=== PATIENT | female | born 1995 | race Caucasian/White ===

== ENCOUNTER → 2016-09-08 | Outpatient (CLI) | payer BC ==
[2016-09-11 23:54] LABS: CHLAMYDIA TRACH RNA*** NOT DETECTED (NOT DETECTED); GC (NEIS GONORRHOEAE)RNA** NOT DETECTED (NOT DETECTED)
== END | disposition home or self-care (01) ==
LOC: C.LABSPEC 17:34
PROVIDERS: ATTEND Obstetrics & Gynecology
DX: Z01.419 Encounter for gynecological examination (general) (routine) without abnormal findings (principal)

== ENCOUNTER → 2017-01-18 | Outpatient (CLI) | payer BC ==
[~2017-01-18] MED LIST: GADAVIST IV PRN
--- NOTE | 2017-01-18 15:54 | DIAGNOSTIC IMAGING REPORT ---
MRI OF THE BRAIN COMBO CLINICAL HISTORY: Migraine headaches. COMPARISON STUDY: No priors. TECHNIQUE: MRI of the brain was performed utilizing various T1 and T2-weighted sequences in the axial, sagittal, and coronal planes. Contrast-enhanced sequences were acquired following the administration of 5 cc of Gadavist. FINDINGS: Brain parenchyma: The brain parenchyma is normal in appearance. There is no hemorrhage or mass effect. There is no restricted diffusion to suggest acute ischemia. No enhancing mass lesion is identified on the postcontrast images. Frey-white matter differentiation is preserved. No extra-axial fluid collection is seen. The cerebellar tonsils are normal in configuration. Ventricles, sulci, and cisterns: Normal in configuration. Pituitary and sella: Unremarkable. Intracranial vasculature: Normal flow voids are maintained at the skull base. Orbits: The bony orbits are grossly intact. Orbital contents are normal in appearance. Sinuses and mastoids: Mucosal thickening is seen within the ethmoid and maxillary sinuses. The remaining paranasal sinuses and mastoid air cells are clear. Calvarium: Unremarkable. Cervical cord: Partially visualized cervical spinal cord is normal in morphology and signal intensity. IMPRESSION: No acute intracranial abnormality. Electronically signed by: George Gaviria M.D. 01/18/2017 3:53 PM Dictated Date/Time: 01/18/2017 3:50 PM
== END | disposition home or self-care (01) ==
LOC: C.MRI 14:40
PROVIDERS: ATTEND Physician Assistant
DX: R51 Headache (principal)

== ENCOUNTER 2024-06-23 07:34 | Inpatient (IN) ==
[2024-06-23] MEDS ORDERED: LIDOCAINE 1% LOCAL 20 ML VIAL INFIL PRN (07:57)
[2024-06-23] MEDS ORDERED: OXYTOCIN 30 UNITS/NSS 30 UNITS/500 ML BAG IV PRN (07:57)
[2024-06-23 08:43] LABS: Hematocrit (blood only) 37.7 % (37.0-47.0); Hemoglobin 13.1 g/dl (12.0-16.0); Mean Corpuscular Hgb Conc 34.7 g/dL (32.0-36.0); Mean Corpuscular Volume 89.3 fL (80.0-100.0); Mean Platelet Volume 11.4 fL (9.4-12.4); Platelet Count 177 K/uL (130-400); RDW Standard Deviation 42.1 fL (36.4-46.3); Red Blood Count 4.22 M/uL (4.20-5.40); White Blood Count 8.41 K/ul (4.8-10.8)
[2024-06-23] MEDS: SODIUM CHLORIDE 0.9% 1,000 ML IV SCH (09:50)
[2024-06-23] MEDS: OXYTOCIN 30 UNITS/NSS 30 UNITS/500 ML BAG IV PRN (09:50)
[2024-06-23] MEDS ORDERED: fentaNYL citrate PF 100 MCG/2 ML VIAL EPI STA (13:32)
[2024-06-23] MEDS ORDERED: NALBUPHINE HCL INJ 10 MG/ML AMP IV PRN (13:32)
[2024-06-23] MEDS ORDERED: BUPIVACAINE 0.25% PF 30 ML VIAL EPI PRN (13:32)
[2024-06-23] MEDS ORDERED: fentaNYL citrate PF 100 MCG/2 ML VIAL EPI PRN (13:32)
[2024-06-23] MEDS ORDERED: ONDANSETRON INJ 2 MG/ML 2 ML VIAL IV PRN (13:32)
[2024-06-23] MEDS ORDERED: diphenhydrAMINE 50 MG/ML VIAL IV PRN (13:32)
[2024-06-23] MEDS ORDERED: LIDOCAINE 2% MPF LOCAL 5 ML VIAL EPI PRN (13:32)
[2024-06-23] MEDS ORDERED: SODIUM CHLORIDE 0.9% PF INJ 10 ML VIAL EPI PRN (13:32)
[2024-06-23] MEDS ORDERED: LIDOCAINE 2%/EPINEPHRINE 1:200,000 20 ML PF EPI STA (13:32)
[2024-06-23] MEDS ORDERED: NALOXONE HCL 0.4 MG/1 ML VIAL/CARP IV PRN (13:32)
[2024-06-23] MEDS ORDERED: ROPIVACAINE 0.5% PF 5 MG/ML 20 ML VIAL EPI PRN (13:32)
[2024-06-23] MEDS ORDERED: NALOXONE HCL 1 MG in SODIUM CHLORIDE 0.9% 1,000 ML IV PRN (13:32)
[2024-06-23] MEDS ORDERED: BUPIVACAINE 0.25% PF 30 ML VIAL EPI STA (13:32)
[2024-06-23] MEDS ORDERED: ePHEDrine sulfate 50 MG/ML AMP IV PRN (13:32)
[2024-06-23] MEDS ORDERED: SODIUM CHLORIDE 0.9% PF INJ 10 ML VIAL EPI STA (13:32)
--- NOTE | 2024-06-23 13:33 | Anesthesiology Consultation ---
Date of Service June 23, 2024 Assessment & Plan (1) Encounter for pre-operative examination: Chart Review Chart Review: Patient NOT seen in Pre Admission Testing and Acceptable Risk for Labor Epidural Consults Requested none History Height/Weight Height: 5 ft 4 in Weight: 66.678 kg Allergies Allergy/AdvReac Type Severity Reaction Status Date / Time No Known Drug Allergies Allergy Verified 06/19/24 10:56 Medications Home Medications Medication Instructions Recorded Confirmed Last Taken sertraline 25 mg tablet 50 mg PO .TAKE 1 TABLET DAILY 02/16/20 06/23/24 06/22/24 21:00 NEEDED. PRN Anxiety 21-iron fu-folic acid 1 tab PO DAILY 11/26/23 06/23/24 06/22/24 21:00 [ Complete] breast pump #1 ea 02/21/24 06/19/24 Unknown Active Medications Generic Name Dose Route Start Last Admin Trade Name Freq PRN Reason Stop Dose Admin Oxytocin 30 units in 500 mls @ 12 mls/hr 06/23/24 07:57 06/23/24 12:20 Pitocin 30 Units/Nss IV 06/25/24 07:56 0.72 units/hr .Q24H PRN 12 mls/hr Labor Induction/Augmentation Titration Protocol 0.72 UNITS/HR Sodium Chloride 1,000 mls @ 50 mls/hr 06/23/24 10:00 06/23/24 09:50 Nss IV 06/24/24 09:59 50 mls/hr .Q20H TEGAN Administration Past Medical History Medical History (Updated 06/23/24 @ 13:33 by Derrick Sierra MD) Encounter for pre-operative examination Seasonal allergies UTI (urinary tract infection) History of chicken pox History of migraine Anxiety Finger laceration Exercise / Class Metabolic Activity II 4-5 Yardwork/Stairs/Walk up hill Past Family History Family History Mother Thyroid cancer Father Asthma Denies family history of Ovarian cancer Breast cancer Colorectal cancer Past Surgical History Surgical History S/P wisdom tooth extraction History of surgical removal of ganglion cyst H/O colonoscopy History of esophagogastroduodenoscopy (EGD) Social History Smoking Status: Never smoker Do You Dip or Chew Tobacco: No Hx Alcohol Use: No Hx Substance Use: No substance use type: does not use Physical Exam Vital Signs Last Vital Signs Temp 36.7 C 06/23/24 08:06 Pulse 71 06/23/24 14:09 Resp 16 06/23/24 08:06 BP 152/96 H 06/23/24 14:06 Pulse Ox 99 06/23/24 14:09 Testing Laboratory Results 06/23/24 08:21
[2024-06-23] MEDS: fentANYL 2 MCG/ML BUPIVacaine 0.125%-NSS 100ML BAG ONE (14:10)
[2024-06-23] MEDS: fentaNYL citrate PF 100 MCG/2 ML VIAL ONE (14:19)
[2024-06-23] MEDS: LIDOCAINE 2%/EPINEPHRINE 1:200,000 20 ML PF ONE (14:19)
[2024-06-23] MEDS: BUPIVACAINE 0.25% PF 30 ML VIAL ONE (14:20)
[2024-06-23] MEDS: fentANYL 2 MCG/ML BUPIVacaine 0.125%-NSS 100ML BAG EPI PRN (23:32)
[2024-06-24] MEDS ORDERED: ROPIVACAINE 0.5% 5 MG/ML 30 ML VIAL ONE (01:02)
[2024-06-24] MEDS ORDERED: LIDOCAINE 2%/EPINEPHRINE 1:200,000 20 ML PF ONE (01:02)
--- NOTE | 2024-06-24 01:24 | Anesthesia Procedure Note ---
Date of Service June 24, 2024 Anesthesia Epidural Re-Dose Vital Signs Temp Pulse Resp BP Pulse Ox 37.1 C 99 H 18 121/76 98 06/23/24 23:31 06/24/24 01:19 06/24/24 00:01 06/24/24 01:17 06/24/24 01:19 Notes Pain Intensity: 0 Dilatation (cm): 7.0 Effacement (%): 100 Called by nursing to evaluate epidural as the patient is having increased pain. The epidural was re-dosed with the following medications (all medications via epidural route) after negative aspiration of the epidural catheter for CSF/HEME. 4ml of 2% LIdocaine and 4ml of 0.5% ropivicaine After Epidural Re-Dose Mental Status: alert / awake / arousable Pain: improving with treatment Airway Patency, RR, SpO2: stable & adequate BP & HR: stable & adequate
[2024-06-24] MEDS ORDERED: SERTRALINE HCL 50 MG TABLET PO PRN (02:57)
[2024-06-24] MEDS ORDERED: oxyCODONE/ACETAMINOPHEN 5mg/325mg TAB PO PRN (02:57)
[2024-06-24] MEDS ORDERED: HYDROCORTISONE ACETATE 25 MG SUPP PR PRN (02:57)
[2024-06-24] MEDS ORDERED: OXYTOCIN 30 UNITS/NSS 30 UNITS/500 ML BAG IV PRN (02:57)
--- NOTE | 2024-06-24 03:08 | Delivery Summary ---
Vaginal Delivery Summary Date of Service June 24, 2024 Vaginal Delivery Summary DIAGNOSES 1. Corbett intrauterine at 37 weeks 4 days gestation. 2. Induction of Labor, due to Severe IUGR. 3. Group B Streptococcus Neg. PROCEDURE: Spontaneous vaginal delivery without laceration. SURGEON: Aga Mueller MD. COMMUNITY DEVELOPMENT TECHNICIAN: None. ESTIMATED BLOOD LOSS: 100 mL. COMPLICATIONS: None. PLACENTA: Spontaneous and intact with a 3-vessel cord. DISPOSITION: Stable to labor and delivery. DESCRIPTION: The patient pushed well and brought the head to in DOA position. The 's head was allowed to deliver with contraction force and no further active pushing, with the perineum protected during this time. There was no nuchal cord. The left shoulder was anterior. The shoulders and body delivered without any difficulty, and the infant was placed on the maternal abdomen. It was vigorous and moving all extremities, and making respiratory efforts. Vocal cries were heard within seconds of . The cord was doubly clamped by the MD and then cut by the FOB. The placenta delivered spontaneously and was noted to be intact and with a 3VC, though small. The cervix, vagina and perineum were examined and were found to be without defect requiring repair. The fundus was firm and lochia minimal immediately after delivery. [facility] Vaginal Delivery Charge Vaginal Delivery Codes: 95861 global code for the antepartum, delivery, and post-
[2024-06-24] MEDS: ePHEDrine sulfate 50 MG/ML AMP ONE (03:11)
[2024-06-24] MEDS: SODIUM CHLORIDE 0.9% PF INJ 10 ML VIAL ONE (03:11)
--- NOTE | 2024-06-24 07:24 | Obstetrical Progress Note ---
Date of Service June 24, 2024 Assessment & Plan (1) Hypertension: PPD#0 from of IUGR infant. , BP elevations noted, briefly in severe range but have settled at lower end of HTN. No symptoms. Will check labs but also start procardia now. Subjective Ambulation: ambulating normally Voiding: no voiding problems Passing Gas:: Yes Diet Tolerance:: regular diet Lochia:: Small Feeding Type:: bottle feeding Current Pain Level(1-10): 0 Denies ANDRES, RUQ or Vis Chg. No edema. Physical Exam Constitutional WD/WN, vitals as above Eyes PERRL, conjunctivae normal, anicteric sclerae ENMT external ear and nose normal, oropharynx normal Neck trachea midline, no thyromegaly Respiratory normal respiratory effort and able to speak in complete sentences; no respiratory distress, no labored breathing and does not use accessory muscles Cardiovascular Rate/Rhythm: regular rate and regular rhythm Extremities: no calf tenderness and no pedal edema Chest (Breasts) Breast: normal inspection of breasts (Only R breast visible during visit today. Formula bottle in bed.) Gastrointestinal (Abdomen) Inspection/Auscultation: abdomen normal to inspection; abdomen not distended Fundus not palpated d/t mom holding at this time. Musculoskeletal no cyanosis or clubbing, extremities motor strength 5/5 Skin no rashes, warm and dry Neurologic patellar DTR's 2+ bilat, sensation intact Psychiatric A+Ox3, euthymic affect Genitourinary Speculum/Bimanual Exam: uterus nontender Results & Data Vital Signs (Past 12 Hours) Vital Signs Temp Pulse Resp BP Pulse Ox 06/24/24 07:04 84 140/85 06/24/24 07:01 75 139/90 06/24/24 06:46 77 146/88 H 06/24/24 06:31 78 144/87 H 06/24/24 06:16 81 141/84 H 06/24/24 06:01 75 139/82 06/24/24 05:46 77 144/88 H 06/24/24 05:31 76 142/85 H 06/24/24 05:16 92 H 135/83 06/24/24 05:01 75 148/95 H 06/24/24 05:00 18 06/24/24 04:46 77 138/94 06/24/24 04:30 18 06/24/24 04:30 149/97 H 06/24/24 04:25 74 168/95 H 06/24/24 04:16 75 169/104 H 06/24/24 04:00 18 06/24/24 04:00 77 144/94 H 06/24/24 03:58 79 148/101 H 06/24/24 03:46 82 143/96 H 06/24/24 03:45 18 06/24/24 03:31 78 153/98 H 06/24/24 03:30 18 06/24/24 03:16 87 149/91 H 06/24/24 03:15 18 06/24/24 03:01 96 H 147/102 H 06/24/24 03:00 98.4 F 18 06/24/24 02:48 97 H 138/82 06/24/24 02:44 89 100 06/24/24 02:39 134 H 100 06/24/24 02:34 103 H 97 06/24/24 02:31 96 H 165/107 H 06/24/24 02:29 99 H 99 06/24/24 02:24 97 H 100 06/24/24 02:19 103 H 133/95 100 06/24/24 02:18 101 H 139/110 H 06/24/24 02:17 93 H 147/101 H 06/24/24 02:14 87 96 06/24/24 02:09 86 95 06/24/24 02:04 90 96 06/24/24 02:02 80 137/83 06/24/24 01:59 87 96 06/24/24 01:54 85 95 06/24/24 01:49 84 97 06/24/24 01:47 83 138/91 06/24/24 01:44 87 98 06/24/24 01:39 83 98 06/24/24 01:34 81 100 06/24/24 01:32 90 135/89 06/24/24 01:31 18 06/24/24 01:31 18 06/24/24 01:29 106 H 99 06/24/24 01:25 18 06/24/24 01:25 98.1 F 18 06/24/24 01:24 104 H 100 06/24/24 01:21 85 126/77 06/24/24 01:19 99 H 98 06/24/24 01:17 85 121/76 06/24/24 01:14 85 100 06/24/24 01:11 82 143/83 H 06/24/24 01:10 83 205/138 H 06/24/24 01:09 81 99 06/24/24 01:05 80 192/118 H 06/24/24 01:04 86 97 06/24/24 00:59 79 98 06/24/24 00:54 85 98 06/24/24 00:49 87 100 06/24/24 00:44 85 98 06/24/24 00:39 79 99 06/24/24 00:34 86 97 06/24/24 00:30 86 88 L 06/24/24 00:29 81 99 06/24/24 00:24 76 97 06/24/24 00:19 100 H 97 06/24/24 00:14 79 97 06/24/24 00:09 75 97 06/24/24 00:04 80 98 06/24/24 00:01 80 18 133/89 06/23/24 23:59 81 97 06/23/24 23:54 79 96 06/23/24 23:49 78 96 06/23/24 23:46 71 131/79 06/23/24 23:44 76 96 06/23/24 23:39 78 95 06/23/24 23:34 74 95 06/23/24 23:32 77 136/84 06/23/24 23:31 18 06/23/24 23:31 98.8 F 18 06/23/24 23:29 78 96 06/23/24 23:24 79 96 06/23/24 23:19 79 96 06/23/24 23:16 73 137/75 06/23/24 23:14 80 96 06/23/24 23:09 81 96 06/23/24 23:04 78 96 06/23/24 23:01 81 18 134/74 06/23/24 22:59 76 97 06/23/24 22:54 72 96 06/23/24 22:49 76 97 06/23/24 22:46 76 138/76 06/23/24 22:44 80 96 06/23/24 22:39 79 97 06/23/24 22:34 82 96 06/23/24 22:31 75 18 127/78 06/23/24 22:29 81 96 06/23/24 22:24 76 96 06/23/24 22:19 79 98 06/23/24 22:17 71 133/78 06/23/24 22:14 89 97 06/23/24 22:09 78 97 06/23/24 22:04 81 96 06/23/24 22:01 73 18 136/84 06/23/24 21:59 82 96 06/23/24 21:54 77 96 06/23/24 21:49 82 97 06/23/24 21:48 71 133/82 06/23/24 21:46 75 128/83 06/23/24 21:44 84 97 06/23/24 21:39 77 96 06/23/24 21:34 74 97 06/23/24 21:31 75 18 130/81 06/23/24 21:29 86 96 06/23/24 21:24 81 97 06/23/24 21:19 77 99 06/23/24 21:17 77 125/79 06/23/24 21:16 75 135/89 06/23/24 21:14 78 99 06/23/24 21:09 78 100 06/23/24 21:04 79 100 06/23/24 21:01 78 18 124/82 06/23/24 20:54 85 100 06/23/24 20:49 86 98 06/23/24 20:46 84 131/87 06/23/24 20:44 84 99 06/23/24 20:39 92 H 100 06/23/24 20:34 72 99 06/23/24 20:32 77 127/82 06/23/24 20:29 80 99 06/23/24 20:24 79 97 06/23/24 20:23 18 06/23/24 20:23 18 06/23/24 20:19 78 97 06/23/24 20:16 83 128/86 06/23/24 20:14 74 96 06/23/24 20:09 78 99 06/23/24 20:04 77 97 06/23/24 20:01 76 127/85 06/23/24 19:59 72 97 06/23/24 19:54 71 98 06/23/24 19:49 82 97 06/23/24 19:47 80 125/84 06/23/24 19:44 71 99 06/23/24 19:39 76 99 06/23/24 19:34 65 99 06/23/24 19:32 80 128/85 06/23/24 19:29 73 99 06/23/24 19:24 85 100
[2024-06-24] MEDS: PRENATAL VITAMIN 1 TAB PO SCH (07:44)
[2024-06-24] MEDS: NIFEdipine EXTENDED REL 30 MG TABCR PO SCH (07:44)
[2024-06-24] MEDS: DOCUSATE SODIUM 100 MG CAP PO SCH (07:44)
[2024-06-24] MEDS: BENZOCAINE 20% SPRY 85 APPLN/85 GM CAN EXT PRN (07:46)
[2024-06-24 07:49] LABS: Hematocrit (blood only) 39.7 % (37.0-47.0); Hemoglobin 13.8 g/dl (12.0-16.0); Mean Corpuscular Hemoglobin 31.3 pg (25.0-34.0); Mean Corpuscular Hgb Conc 34.8 g/dL (32.0-36.0); Mean Platelet Volume 11.3 fL (9.4-12.4); Platelet Count 197 K/uL (130-400); RDW Coefficient of Variation 13.2 % (11.5-14.5); RDW Standard Deviation 43.5 fL (36.4-46.3); Red Blood Count 4.41 M/uL (4.20-5.40); White Blood Count 17.88 K/ul (4.8-10.8)
[2024-06-24] MEDS: IBUPROFEN 600 MG TAB PO PRN (08:01)
[2024-06-24 08:10] LABS: Albumin Globulin Ratio 1.3 (0.9-2); Albumin Level 3.5 gm/dl (3.4-5.0); BUN Creatinine Ratio 12.5 (10-20); Bilirubin,Total 0.5 mg/dl (0.2-1.0); Calcium 9.5 mg/dl (8.6-10.3); Creatinine Clr Calc Pharmacy 99.2 ml/min; Globulin 2.8 gm/dl (2.5-4.0); Potassium 4.2 mmol/L (3.5-5.1); Total Protein 6.3 gm/dl (6.0-8.3)
--- NOTE | 2024-06-24 08:16 | Anesthesia Procedure Note ---
Date of Service June 24, 2024 Anesthesia Post Epidural Note Vital Signs Vital Signs: Temp Pulse Resp BP Pulse Ox 36.9 C 67 18 161/93 H 100 06/24/24 03:00 06/24/24 08:01 06/24/24 05:00 06/24/24 08:01 06/24/24 02:44 Notes Mental Status: alert / awake / arousable Nausea / Vomiting: adequately controlled Pain: adequately controlled Airway Patency, RR, SpO2: stable & adequate BP & HR: stable & adequate Hydration State: stable & adequate Neuraxial Anesthesia: was administered and sensory block is resolving Anesthetic Complications: no major complications apparent and Pt Satisfied with anesthetic care Epidural: Removed without complications and With tip intact
--- NOTE | 2024-06-24 08:17 | Communication Note ---
Date of Service: June 24, 2024 Patient continues to be asymptomatic. She just received first dose of procardia. Pressures as noted. Exam benign. Labs all wnl. Will continue to monitor closely.
--- NOTE | 2024-06-24 08:40 | Communication Note ---
Date of Service: June 24, 2024 Labs are normal but last two blood pressures after procardia given have been in the severe range. Most recently 170/103. Given patient was completely normotensive prior to and through delivery, and now hypertensive, must assume pp pet. Discussed this with the patient and the concerns for pp pet and eclampsia. discussed recommend mag sulfate for treatment at this time. Discussed the r/b/se of mag. Discussed the r/b/se of eclampsia. Patient is agreeable to treatment. baby weighed 4#14oz. May be she has iugr because she had pet.
[2024-06-24] MEDS: SODIUM CHLORIDE 0.9% 1,000 ML IV SCH (09:00)
[2024-06-24] MEDS: MAGNESIUM SULFATE / WTR 40 GM/1,000 ML BAG IV SCH (09:03)
[2024-06-24] MEDS: MAG SULFATE 6GM BOLUS FROM BAG IV ONE (09:03)
[2024-06-24] MEDS: LABETALOL HCL 200 MG TAB PO ONE (10:34)
[2024-06-24] MEDS: DIPHTHER/TETAN/PERTUS Vaccine (Tdap, Adol/Adult) 0.5mL IM ONE (14:47)
[2024-06-24] MEDS: SERTRALINE HCL 50 MG TABLET PO SCH (20:35)
[2024-06-25] MEDS: ACETAMINOPHEN 325 MG TAB PO PRN (02:16)
--- NOTE | 2024-06-25 05:42 | Obstetrical Progress Note ---
Date of Service June 25, 2024 Assessment & Plan (1) Preeclampsia: Plan Doing well on Mag. Pressures have been improved, excellent uop. Plan to d/c mag at 9 and transfer to the floor. then treat bps as needed. nl pp care. Day #:: 1 Subjective Ambulation: limited ambulation Voiding: olmedo catheter in place Passing Gas:: No Diet Tolerance:: clear liquids Lochia:: Small Feeding Type:: breast feeding (pumping and feeding. ) patient notes a mild feng that resolved with tylenol. notes she is hungry. No vision changes, n/v, ruq pain, cp, sob. Physical Exam Constitutional WD/WN, vitals as above Cardiovascular Extremities: no calf tenderness and no edema Gastrointestinal (Abdomen) soft, nt, nd ff/nt 1 below u Neurologic patellar DTR's 2+ bilat, sensation intact Psychiatric A+Ox3, euthymic affect Results & Data Vital Signs (Past 12 Hours) Vital Signs Temp Pulse Resp BP Pulse Ox 06/25/24 05:32 69 98 06/25/24 05:31 16 06/25/24 05:27 72 97 06/25/24 05:22 71 97 06/25/24 05:17 82 06/25/24 05:17 75 144/81 H 96 06/25/24 05:12 76 95 06/25/24 05:07 76 95 06/25/24 05:02 76 95 06/25/24 04:57 76 95 06/25/24 04:52 76 96 06/25/24 04:47 76 95 06/25/24 04:42 76 95 06/25/24 04:37 75 96 06/25/24 04:32 74 96 06/25/24 04:27 72 96 06/25/24 04:22 71 98 06/25/24 04:17 71 06/25/24 04:17 71 119/84 97 06/25/24 04:13 36.4 C L 06/25/24 04:13 16 06/25/24 04:12 92 H 94 06/25/24 04:07 74 95 06/25/24 04:02 74 95 06/25/24 03:57 74 94 06/25/24 03:52 72 96 06/25/24 03:47 80 94 06/25/24 03:42 16 06/25/24 03:42 80 95 06/25/24 03:37 74 95 06/25/24 03:32 80 94 06/25/24 03:27 81 95 06/25/24 03:22 79 95 06/25/24 03:17 76 06/25/24 03:17 79 113/69 95 06/25/24 03:12 79 95 06/25/24 03:07 80 95 06/25/24 03:02 79 95 06/25/24 02:57 78 96 06/25/24 02:52 76 95 06/25/24 02:47 75 96 06/25/24 02:42 73 97 06/25/24 02:37 76 98 06/25/24 02:32 74 100 06/25/24 02:27 73 100 06/25/24 02:22 83 99 06/25/24 02:21 18 06/25/24 02:21 78 83 L 06/25/24 02:17 89 130/83 96 06/25/24 02:13 97 H 85 L 06/25/24 02:12 85 98 06/25/24 02:07 85 99 06/25/24 02:02 86 97 06/25/24 01:57 87 100 06/25/24 01:52 83 98 06/25/24 01:51 84 88 L 06/25/24 01:47 82 126/73 99 06/25/24 01:42 79 94 06/25/24 01:37 78 93 06/25/24 01:32 79 94 06/25/24 01:27 79 94 06/25/24 01:22 81 93 06/25/24 01:17 77 06/25/24 01:17 80 109/68 94 06/25/24 01:12 79 94 06/25/24 01:07 78 94 06/25/24 01:02 76 95 06/25/24 00:57 79 99 06/25/24 00:52 92 H 100 06/25/24 00:47 77 06/25/24 00:47 86 118/78 98 06/25/24 00:42 88 97 06/25/24 00:37 79 97 06/25/24 00:32 79 92 06/25/24 00:30 36.4 C L 06/25/24 00:30 16 06/25/24 00:27 77 92 06/25/24 00:22 81 92 06/25/24 00:17 95 H 06/25/24 00:17 87 128/65 94 06/25/24 00:16 86 92 06/25/24 00:12 86 93 06/25/24 00:11 83 91 06/25/24 00:07 84 94 06/25/24 00:02 84 93 06/24/24 23:57 86 94 06/24/24 23:52 85 94 06/24/24 23:47 85 06/24/24 23:47 86 106/60 92 06/24/24 23:42 91 H 95 06/24/24 23:37 89 93 06/24/24 23:32 87 93 06/24/24 23:30 16 06/24/24 23:28 87 92 06/24/24 23:27 86 92 06/24/24 23:22 89 93 06/24/24 23:17 87 06/24/24 23:17 89 103/61 93 06/24/24 23:12 88 93 06/24/24 23:07 89 94 06/24/24 23:02 88 94 06/24/24 22:57 87 93 06/24/24 22:52 89 94 06/24/24 22:47 87 110/69 95 06/24/24 22:42 89 97 06/24/24 22:37 88 97 06/24/24 22:32 84 97 06/24/24 22:30 18 06/24/24 22:27 83 96 06/24/24 22:22 85 97 06/24/24 22:17 80 117/71 98 06/24/24 22:12 92 H 96 06/24/24 22:07 93 H 99 06/24/24 22:02 85 99 06/24/24 21:57 146 H 83 L 06/24/24 21:52 106 H 92 06/24/24 21:51 104 H 91 06/24/24 21:47 83 123/78 98 06/24/24 21:46 101 H 91 06/24/24 21:42 92 H 96 06/24/24 21:37 102 H 96 06/24/24 21:35 16 06/24/24 21:32 95 H 96 06/24/24 21:27 101 H 95 06/24/24 21:22 99 H 97 06/24/24 21:17 87 129/86 97 06/24/24 21:12 98 H 98 06/24/24 21:07 87 98 06/24/24 21:02 85 98 06/24/24 20:57 92 H 99 06/24/24 20:52 89 99 06/24/24 20:47 84 06/24/24 20:47 88 137/92 100 06/24/24 20:42 90 100 06/24/24 20:37 88 100 06/24/24 20:32 90 98 06/24/24 20:27 88 100 06/24/24 20:22 89 100 06/24/24 20:17 87 06/24/24 20:17 90 126/89 100 06/24/24 20:13 16 06/24/24 20:12 84 100 06/24/24 20:07 92 H 99 06/24/24 20:02 99 H 99 06/24/24 19:57 92 H 100 06/24/24 19:52 90 100 06/24/24 19:47 86 06/24/24 19:47 89 131/81 100 06/24/24 19:42 87 100 06/24/24 19:37 85 100 06/24/24 19:32 84 100 06/24/24 19:27 83 100 06/24/24 19:22 85 100 06/24/24 19:17 78 06/24/24 19:17 78 133/92 100 06/24/24 19:12 89 100 06/24/24 19:07 79 99 06/24/24 19:04 16 06/24/24 19:01 85 95 06/24/24 19:00 84 89 L 06/24/24 18:56 86 95 06/24/24 18:51 86 84 L 06/24/24 18:48 92 H 135/86 91 06/24/24 18:46 86 93 06/24/24 18:43 86 90 06/24/24 18:41 88 97 06/24/24 18:36 86 97 06/24/24 18:35 83 92 06/24/24 18:33 88 143/104 H 06/24/24 18:31 86 95 06/24/24 18:26 88 96 06/24/24 18:21 92 H 91 06/24/24 18:17 88 135/98 06/24/24 18:16 85 91 06/24/24 18:11 90 67 L 06/24/24 18:10 93 H 87 L 06/24/24 18:06 89 99 06/24/24 18:03 81 137/100 06/24/24 18:01 89 L 06/24/24 18:01 89 06/24/24 18:01 86 100 06/24/24 18:00 18 06/24/24 17:56 89 98 06/24/24 17:51 93 H 97 06/24/24 17:47 86 131/76 06/24/24 17:46 83 96 06/24/24 17:41 88 97
[2024-06-25 06:28] LABS: Hematocrit (blood only) 41.1 % (37.0-47.0); Hemoglobin 14.3 g/dl (12.0-16.0); Mean Corpuscular Hemoglobin 31.9 pg (25.0-34.0); Mean Corpuscular Hgb Conc 34.8 g/dL (32.0-36.0); Mean Corpuscular Volume 91.7 fL (80.0-100.0); Mean Platelet Volume 10.7 fL (9.4-12.4); Platelet Count 164 K/uL (130-400); RDW Coefficient of Variation 13.4 % (11.5-14.5); RDW Standard Deviation 44.4 fL (36.4-46.3); Red Blood Count 4.48 M/uL (4.20-5.40); White Blood Count 9.22 K/ul (4.8-10.8)
[2024-06-25] MEDS: bisacodyL 5 MG TABEC PO SCH (20:28)
[2024-06-26] MEDS ORDERED: bisacodyL 10 MG SUPP PR PRN (02:57)
[2024-06-26 07:12] LABS: Hematocrit (blood only) 40.3 % (37.0-47.0); Hemoglobin 13.9 g/dl (12.0-16.0)
--- NOTE | 2024-06-26 07:50 | Obstetrical Progress Note ---
Date of Service June 26, 2024 Assessment & Plan (1) Encounter for assessment: Plan: Patient is PPD 2 s/p and doing well - Eating well, voiding well, ambulating well - vitals reviewed, BP continues to be borderline, 147/96 this am - Continue to trend BPs, increase Procardia to BID and add Sumatriptan home medication for migraines - pain well controlled with analgesics - OOB, ambulation, diet progression as tolerated - Blood type: O+, GBS neg, rubella immune - Plan to discharge tomorrow - After discharge, 6 week follow up with OBGYN Admission and Anticipated Discharge Date Admission Date: June 23, 2024 Supervising Physician Co-Signing Physician Notes Resident Physician Supervision Note: I interviewed and examined the patient. Discussed with Dr. Lanier and agree with findings and plan as documented in the note. Any exceptions or clarifications are listed here: [None] Documented By: Catherine Huerta MD, FACOG Subjective 28 yo post- day 2 s/p complicated by IUGR and hypertension Ambulation: ambulating normally Voiding: no voiding problems Passing Gas:: Yes Diet Tolerance:: regular diet Lochia:: Small Feeding Type:: bottle feeding and breast feeding Current Pain Level:0/10 Resting comfortably this AM in NAD. Denies CP, SOB, N/V/D, LE pain/swelling. Endorses mild migraine/headache, patient reports that it feels like the typical migraines she gets which are normally controlled with sumatriptan Physical Exam Physical Exam: General: patient resting comfortably, NAD, non-toxic in appearance, answers questions appropriately. Skin: warm, dry, intact HEENT: NC/AT, anicteric sclera, conjunctiva without injection, moist mucus membranes. Heart: +S1/S2, regular, no m/r/g Lungs: equal air entry bilaterally, no rales/rhonchi/wheezes Abd: +BS, soft, NT/ND Ext: warm, no clubbing/cyanosis or edema Neuro: nonfocal, speech intact, no facial droop, moving all extremities. Results & Data Vital Signs (Past 12 Hours) Vital Signs Temp Pulse Resp BP Pulse Ox O2 Del Method 06/26/24 07:00 36.7 C 73 16 144/102 H 99 Room Air 01/30/25 00:08 36.7 C 66 18 147/96 H 06/25/24 20:35 36.9 C 76 20 146/95 H 100 Room Air Resident Activity Tracking Resident Involvement: Resident Care Provided Care Provided: OB Delivery
[2024-06-26] MEDS ORDERED: SUMAtriptan succinate 50 MG TAB PO PRN (07:56)
[2024-06-26] MEDS: NIFEdipine 10 MG CAP PO STA (16:11)
[2024-06-26 16:34] LABS: Hematocrit (blood only) 41.1 % (37.0-47.0); Hemoglobin 14.3 g/dl (12.0-16.0); Mean Corpuscular Hemoglobin 32.4 pg (25.0-34.0); Mean Corpuscular Hgb Conc 34.8 g/dL (32.0-36.0); Mean Corpuscular Volume 93.2 fL (80.0-100.0); Mean Platelet Volume 10.5 fL (9.4-12.4); Platelet Count 220 K/uL (130-400); RDW Coefficient of Variation 13.3 % (11.5-14.5); Red Blood Count 4.41 M/uL (4.20-5.40); White Blood Count 10.26 K/ul (4.8-10.8)
[2024-06-26 16:47] LABS: Albumin Globulin Ratio 1.2 (0.9-2); Albumin Level 3.7 gm/dl (3.4-5.0); Bilirubin,Total 0.3 mg/dl (0.2-1.0); Calcium 8.9 mg/dl (8.6-10.3); Creatinine Clr Calc Pharmacy 99.2 ml/min; Globulin 3.1 gm/dl (2.5-4.0); Total Protein 6.8 gm/dl (6.0-8.3)
[2024-06-26 18:48] VITALS: O2SAT 98
[2024-06-26] MEDS: NIFEdipine EXTENDED REL 30 MG TABCR PO SCH (20:45)
--- NOTE | 2024-06-27 08:06 | Obstetrical Progress Note ---
Date of Service June 27, 2024 Assessment & Plan (1) Encounter for assessment: Plan: Patient is PPD 3 s/p and doing well - Eating well, voiding well, ambulating well - vitals reviewed, BP continues to be borderline, 137/94 this am - pain well controlled with analgesics - OOB, ambulation, diet progression as tolerated - Blood type: O+, GBS neg, rubella immune - Plan to discharge today with Procardia XL 30mg BID - After discharge, close f/u with OBGYN, appointment for Sunday/Sunday of next week Admission and Anticipated Discharge Date Admission Date: June 23, 2024 Supervising Physician Co-Signing Physician Notes Resident Physician Supervision Note: I interviewed and examined the patient. Discussed with Dr. Lanier and agree with findings and plan as documented in the note. Any exceptions or clarifications are listed here: PPD#3 doing well. BP controlled with procardia - sent Rx to pharmacy. DC home, reviewed instructions. Followup in office early next week for BP check. Documented By: Carlene Dominguez, Subjective 28 yo post- day 2 s/p complicated by IUGR and hypertension Ambulation: ambulating normally Voiding: no voiding problems Passing Gas:: Yes Diet Tolerance:: regular diet Lochia:: Small Feeding Type:: bottle feeding and breast feeding Current Pain Level:0/10 Resting comfortably this AM in NAD. Denies CP, SOB, N/V/D, LE pain/swelling. Mild migraine from day before has resolved w/o sumatriptan medication, resolved with tylenol Physical Exam Physical Exam: General: patient resting comfortably, NAD, non-toxic in appearance, answers questions appropriately. Skin: warm, dry, intact HEENT: NC/AT, anicteric sclera, conjunctiva without injection, moist mucus membranes. Heart: +S1/S2, regular, no m/r/g Lungs: equal air entry bilaterally, no rales/rhonchi/wheezes Abd: +BS, soft, NT/ND Ext: warm, no clubbing/cyanosis or edema Neuro: nonfocal, speech intact, no facial droop, moving all extremities. Results & Data Vital Signs (Past 12 Hours) Vital Signs Temp Pulse Resp BP BP Pulse Ox O2 Del Method 06/27/24 03:17 137/94 06/26/24 23:12 37 C 62 16 149/97 H 98 Room Air 06/26/24 20:48 142/96 H Resident Activity Tracking Resident Involvement: Resident Care Provided Care Provided: OB Delivery
[2024-06-27 09:30] VITALS: BP 138/94; PULSE 75; RESP 18; TEMP 98.6
== END 2024-06-27 11:45 | disposition home or self-care (01) | DRG 807 ==
LOC: 4S1 07:34 → 4E2 06-25 09:53